=== PATIENT | female | born 1950 | race Caucasian/White ===

== ENCOUNTER 2017-06-11 12:38 | Emergency (ER) | payer MEDICAID ==
[~2017-06-11] VITALS: Ht 157.5 cm; Wt 74.0 kg
[~2017-06-11 12:38] MED LIST: ATEN-138 PO; BENA40TA41 PO; HYDR25TA6 PO
[2017-06-11 12:42] VITALS: Ht 157.5 cm; Wt 74.0 kg
[2017-06-11] MEDS ORDERED: HYDR-906 PO (14:32)
[2017-06-11] MEDS ORDERED: NAPR-260 PO (14:32)
[2017-06-11] MEDS ORDERED: CYCL-319 PO (14:32)
[2017-06-11 14:51] VITALS: BP 155/79; PULSE 74; RESP 18; TEMP 98.2
--- NOTE | 2017-06-11 15:07 | ERD ---
ER Documentation Chief Complaint Date/Time DATE: 06/11/17 TIME: 15:01 Chief Complaint left leg pain x 1 month HPI 67-year-old female complaining of left leg pain 1 month. Patient states her pain is worse with ambulation. Denies swelling. Denies any recent falls or accidents. Denies dysuria or urinary retention or bowel incontinence. Patient denies rash. Has not taken pain medications for symptoms. Denies numbness or tingling down extremities. Medical problems: Hypertension, arthritis NKDA Surgical history: and kidney surgery. Social: Denies ROS All systems reviewed and are negative except as per history of present illness. Medications Home Meds Active Scripts Cyclobenzaprine Hcl* (Cyclobenzaprine Hcl*) 10 Mg Tablet, 10 MG PO TID, #15 TAB Prov:ANDRADE CAMARGO PA-C 06/11/17 Naproxen* (Naprosyn*) 500 Mg Tablet, 500 MG PO BID Y for PAIN AND/OR INFLAMMATION, #30 TAB Prov:ANDRADE CAMARGO PA-C 06/11/17 Hydrocodone/Acetaminophen ([place] 5-325 Tablet) 1 Each Tablet, 1 TAB PO Q6H Y for PAIN, #7 TAB Prov:ANDRADE CAMARGO PA-C 06/11/17 Reported Medications Atenolol (Tenormin) 25 Mg Tab, 25 MG PO DAILY 12/15/11 Hydrochlorothiazide (Hydrochlorothiazide) 25 Mg Tablet, 25 MG PO DAILY 12/15/11 Benazepril Hcl* (Benazepril Hcl*) 40 Mg Tablet, 40 MG PO DAILY 12/15/11 Allergies Allergies: Coded Allergies: No Known Allergy (Verified , 06/11/17) PMhx/Soc Medical and Surgical Hx: pt denies Medical Hx, pt denies Surgical Hx History of Surgery: Yes (caesarian section) Anesthesia Reaction: No Hx Neurological Disorder: No Hx Respiratory Disorders: No Hx Cardiac Disorders: Yes (hypertension) Hx Psychiatric Problems: No Hx Miscellaneous Medical Probl: Yes (arthritis; kidnesy problems) Hx Alcohol Use: No Hx Substance Use: No Hx Tobacco Use: No Smoking Status: Never smoker Physical Exam Vitals Vital Signs Date Time Temp Pulse Resp B/P Pulse Ox O2 Delivery O2 Flow Rate FiO2 06/11/17 14:51 98.2 74 18 155/79 99 Room Air 06/11/17 12:42 98.7 93 20 170/77 97 Physical Exam GENERAL: The patient is well-appearing, well-nourished, in no acute distress CHEST: Clear to auscultation bilaterally. There are no rales, wheezes or rhonchi. HEART: Regular rate and rhythm. No murmurs, clicks, rubs or gallops. No S3 or S4. BACK: No midline or flank tenderness. EXTREMITIES: Normal strength 5 out of 5 to bilateral lower extremities. Pulses intact bilateral lower extremity's. Tender to palpation over the left buttocks in the distribution of the sciatic nerve. No pain with internal and external rotation of the left lower extremity. Normal range of motion of left lower extremity. NEUROLOGIC: Alert and oriented. Cranial nerves II through XII intact. Motor strength in all 4 extremities with 5 out of 5 strength. Sensation grossly intact. Normal speech and gait. Babinski negative. DTR 2+ throughout. SKIN: There is no apparent rash or petechiae. The skin is warm and dry. Procedures/MDM MDM: 67-year-old female complaining of left leg pain. I have low suspicion for discitis, epidural abscess, or cauda equina. I have low suspicion for acute fracture dislocation. Patient's pain is indicative of sciatic nerve pain. A low suspicion for acute abdominal emergency radiating to the leg. A low suspicion for vascular insufficiency or neuro deficits. Patient's exam is not concerning. Patient will be placed on pain medication with muscle relaxers and recommended to follow-up with primary care within 1-2 days for close evaluation. She is told symptoms change or worsen to return to the ER. All questions answered time of discharge patient understood and complied with plan. Departure Diagnosis: Primary Impression: Back pain with sciatica Condition: Stable Patient Instructions: Back Pain W/ Sciatica Referrals: [facility] YOU HAVE RECEIVED A MEDICAL SCREENING EXAM AND THE RESULTS INDICATE THAT YOU DO NOT HAVE A CONDITION THAT REQUIRES URGENT TREATMENT IN THE EMERGENCY DEPARTMENT. FURTHER EVALUATION AND TREATMENT OF YOUR CONDITION CAN WAIT UNTIL YOU ARE SEEN IN YOUR DOCTORS OFFICE WITHIN THE NEXT 1-2 DAYS. IT IS YOUR RESPONSIBILITY TO MAKE AN APPOINTMENT FOR FOLOW-UP CARE. IF YOU HAVE A PRIMARY DOCTOR --you should call your primary doctor and schedule an appointment IF YOU DO NOT HAVE A PRIMARY DOCTOR YOU CAN CALL OUR PHYSICIAN REFERRAL HOTLINE AT IF YOU CAN NOT AFFORD TO SEE A PHYSICIAN YOU CAN CHOSE FROM THE FOLLOWING [facility] [id number] [facility] [address] [facility] [phone] [facility] [address] [facility] [phone] [facility] [facility]. [address] Additional Instructions: FOLLOW UP WITH YOUR PRIMARY CARE PHYSICIAN TOMORROW.Return to this facility if you are not improving as expected. ANDRADE CAMARGO PA-C Jun 11, 2017 15:07
== END 2017-06-11 15:00 | disposition home or self-care (01) ==
LOC: MERGE 12:38 → FTE 12:38
DX: M54.42 Lumbago with sciatica, left side (principal); I10 Essential (primary) hypertension
CPT/HCPCS: 99284